=== PATIENT | female | born 1990 | race African-American/Black ===

== ENCOUNTER 2025-06-01 13:50 | Emergency (ER) | payer MEDICAID, OTHER ==
[~2025-06-01] VITALS: Ht 167.6 cm; Wt 64.0 kg
[2025-06-01 13:57] VITALS: O2SAT 96
[2025-06-01] MEDS: TETANUS, DIPHTHERIA, PERTUSSIS VAC/PF 0.5ML (>10YR OLD) IM ONE (16:00)
[2025-06-01] MEDS: ACETAMINOPHEN 500MG TABLET PO ONE (16:01)
[2025-06-01] MEDS: BACITRACIN ZINC OINT UDPKT TOP ONE (16:36)
[2025-06-01] MEDS ORDERED: ACET-2708 MT (17:05)
[2025-06-01] MEDS ORDERED: AMOX1TAB16 MT (17:05)
[2025-06-01 17:15] VITALS: BP 120/90; PULSE 90; RESP 16; TEMP 36.7; O2SAT 99
== END 2025-06-01 17:20 | disposition home or self-care (01) ==
LOC: ER 13:50
DX: M79.672 Pain in left foot (principal); Z79.899 Other long term (current) drug therapy
CPT/HCPCS: 73630; 90715; 90471; 99283; Z7610 ×2; A6449